=== PATIENT | female | born 1995 | race Caucasian/White ===

== ENCOUNTER 2020-10-05 19:49 | Inpatient (IN) | payer OTHER, SELFPAY ==
--- NOTE | ~2020-10-05 | CT_ITS ---
EXAMINATION: CT ABDOMEN AND PELVIS WITH CONTRAST CLINICAL INFORMATION: pp right upper quadrant pain. Elevated LFTs COMPARISON: None TECHNIQUE: Multidetector volumetric images were obtained from the superior aspect of the liver through the pubic symphysis following administration 85 mL of Omnipaque 350 intravenous contrast. Sagittal and coronal reformatted images were obtained on the technologist's workstation. Oral contrast: No This CT examination was performed using dose optimization techniques as appropriate, variously including the following: *Automated exposure control *Adjustment of mA and/or kV according to patient size (this includes techniques or standardized protocols for targeted exams where dose is matched to indication/reason for exam; i.e. extremities or head) *Use of iterative reconstruction technique DLP: 638 mGy-cm FINDINGS: LUNG BASES: Clear LIVER, GALLBLADDER, AND BILIARY TREE: Hepatomegaly. Severe diffuse hepatic steatosis. No focal liver lesions. No intra or extrahepatic biliary dilatation. Gallbladder unremarkable. PANCREAS: Unremarkable. SPLEEN: Unremarkable. ADRENAL GLANDS: Unremarkable. KIDNEYS AND URETERS: The kidneys are normal in size, shape, and attenuation. No hydronephrosis, hydroureter, or calculi seen. No perinephric stranding. BLADDER: Unremarkable. GASTROINTESTINAL TRACT: No intestinal obstruction or inflammation. Submucosal fat deposition present within the ascending colon and proximal transverse colon. Appendectomy. ABDOMINAL WALL: No significant hernia is appreciated. LYMPH NODES: Normal. VASCULAR: Unremarkable. PELVIC VISCERA: Uterus and adnexa unremarkable. OSSEOUS STRUCTURES: No acute or suspicious osseous abnormalities. CT/CT abdomen pelvis w con IMPRESSION: * Hepatomegaly and severe diffuse hepatic steatosis. * Nonspecific intramural fatty deposition within the ascending colon. This can be seen as a normal finding in the setting of obesity, but can also been seen in association with inflammatory bowel disease.
[2020-10-05 19:57] VITALS: BP 139/94; PULSE 100; RESP 18; TEMP 37.1; O2SAT 99; BMI 26.4
[2020-10-05 20:00] VITALS: PULSE 81; RESP 16; O2SAT 100
[2020-10-05 20:19] LABS: Glucose Urine UA NEG (NEG); Leukocyte Esterase Urine 1+ (NEG); Nitrite Urine POS (NEG); PH 6.5 (5.0-8.0); Specific Gravity - Urine 1.015 (1.005-1.025); UACC Culture Trigger YES; Urine Blood 3+ (NEG); Urine Ketones 15 MG/DL (NEG); Urine Protein 1+ MG/DL (NEG-TRACE)
[2020-10-05 20:21] LABS: Appearance Urine CLEAR; Color Urine AMBER
[2020-10-05 20:22] LABS: UPreg QC Valid YES; Urine Pregnancy NEGATIVE (NEGATIVE)
[2020-10-05 20:31] LABS: Bacteria Urine 1+ /LPF; Squamous Epithelial Cell Urine 2+ /LPF
--- NOTE | 2020-10-05 20:33 | PC.NURSE ---
pt to room with c/o nausea and vomiting. pt chg into gown and awaiting md's eval.
--- NOTE | 2020-10-05 21:15 | ED_ITS ---
HPI - Nausea/Vomiting/Diarrhea General Chief complaint: Nausea/Vomiting/Diarrhea Stated complaint: Vomiting Time Seen by Provider: 10/05/20 21:07 Source: patient Mode of arrival: ambulatory History of Present Illness HPI Narrative: 25-year-old female presents with 3-4 days nausea and vomiting but denies any fever, chills, diarrhea, urinary pain/burning/frequency, or vaginal discharge. In addition, patient denies any back pain and states that she recently completed a course of oral steroids for her eczema. Related Data Allergies Allergy/AdvReac Type Severity Reaction Status Date / Time No Known Allergies Allergy Verified 10/05/20 19:57 Review of Systems Review of Systems: Pertinent positives and negatives as stated in the HPI and 10 point review of systems is otherwise negative. [facility] Past Medical History Source: nursing notes reviewed Surgical History History of appendectomy Social History Social History Advance Directives: No Advance Directives Information Provided: Yes Physical Exam Vital Signs: Vital Signs: Last Vital Signs Temp 98.7 F 10/05/20 19:57 Pulse 84 10/05/20 22:00 Resp 16 10/05/20 22:00 BP 139/94 H 10/05/20 19:57 Pulse Ox 100 10/05/20 22:00 Body Mass Index 26.4 VITAL SIGNS: Reviewed. GENERAL: Well developed, well nourished, in no acute distress. HEAD: Normocephalic/atraumatic EYES: PERRLA, EOMI, scleral icterus NOSE: Nares patent bilateral OROPHARYNX: no oral lesions noted, posterior pharynx clear NECK: Supple, no adenopathy LUNGS: Normal breath sounds. No adventitious sounds or accessory muscle use. SpO2<99> CARDIOVASCULAR: Regular rate and rhythm without noted murmurs ABDOMEN: Soft, non-tender, non-distended with bowel sounds, no CVA tenderness SKIN: Inspection of the skin reveals significant eczema on back and bilateral upper extremities without noted weeping NEUROLOGIC: Alert and oriented x 4. Course Course Course Narrative: 25-year-old female with history and clinical presentation suggestive of gastroenteritis, , but less likely appendicitis. On review of all investigations urinalysis is significant for UTI and given nausea and vomiting most consistent with pyelonephritis no clinical exam and history do not support this. Given the scleral icterus will proceed with basic labs and patient will receive 1 L IV fluid/Zofran/1g of Rocephin. Review of remaining investigations significant for significantly elevated LFTs, CT scan findings of severe/diffuse hepatic steatosis and fatty deposition within the ascending colon that given patient's history may be more associated with an IBD sort of etiology. I consulted with GI please refer below for that discussion. Patient will be admitted. 0130: On further discussion with the patient she does endorse that she has 2-3 cocktails with some shots 2 to 3 times a week. 0205: I discussed case with inpatient hospitalist team who is agreeable for admission. Reevaluation(s) Reevaluation #1: I discussed this case with Dr. Ann, gastroenterology, who recommends: Admission, GGT/mono/LDH/coags, IV fluids, NPO and she will evaluate the patient in the morning. Time: 01:05 MDM - Nausea/Vomiting/Diarrhea Lab Data Result diagrams: 10/05/20 21:28 10/05/20 21:28 Labs: Lab Results 10/05/20 10/05/20 10/05/20 Range/Units 20:07 20:07 20:07 WBC (4.8-10.8) X10*3/uL RBC (4.20-5.50) X10*6/uL Hgb (12.0-16.0) g/dl Hct (37-47) % MCV (80-98) fL MCH (27.0-33.0) pg MCHC (31.0-35.0) g/dl RDW (11.0-16.0) % Plt Count (160-400) X10*3/uL MPV (9.4-12.3) fL Immature Gran % (Auto) (0.0-0.4) % Neut % (Auto) (45-73) % Lymph % (Auto) (20-40) % [place] % (Auto) (2-11) % Eos % (Auto) (0-4) % Baso % (Auto) (0-2) % Lymph # (Auto) (1.2-4.9) X10*3/uL [place] # (Auto) (0.1-1.2) X10*3/uL Eos # (Auto) (0.0-0.4) X10*3/uL Baso # (Auto) (0.0-0.2) X10*3/uL Abs Immat Gran (auto) (0.00-0.03) X10*3/uL Absolute Neuts (auto) (2.0-8.3) X10*3/uL Absolute Nucleated RBC (0.0-0.012) X10*3/uL Nucleated RBC % (auto) (0.0-0.2) /100WBC PT (10.8-13.0) SEC INR (0.9-1.1) APTT (24.1-38.0) SEC Sodium (135-145) mmol/L Potassium (3.3-5.1) mmol/L Chloride (96-108) mmol/L Carbon Dioxide (22-29) mmol/L Anion Gap (12-20) BUN (9-16) mg/dL Creatinine (0.5-1.4) mg/dL Estim Creat Clear Calc Estimated GFR Random Glucose (60-115) mg/dL Calcium (8.4-10.2) mg/dL Total Bilirubin (0.0-1.0) mg/dL GGT (7-33) U/L AST (5-31) U/L ALT (0-31) U/L Alkaline Phosphatase (39-117) U/L Lactate Dehydrogenase (122-220) U/L Total Protein (6.5-8.0) g/dL Albumin (3.5-5.0) g/dL Urine Color RASHEED Urine Appearance CLEAR Urine pH 6.5 (5.0-8.0) Ur Specific [place] 1.015 (1.005-1.025) Urine Protein 1+ H (NEG-TRACE) MG/DL Urine Glucose (UA) NEG (NEG) MG/DL Urine Ketones 15 (NEG) MG/DL Urine Blood 3+ H (NEG) Urine Nitrite POS H (NEG) Ur Leukocyte Esterase 1+ H (NEG) Urine RBC 10-14 H (0) /HPF Urine WBC 5-9 H (0-4) /HPF Ur Squamous Epith Cells 2+ /LPF Urine Bacteria 1+ /LPF Urine Test NEGATIVE (NEGATIVE) Urine Opiates Screen Not Detected (Not Detect) Acetaminophen (<30) mcg/mL Ur Barbiturates Screen Not Detected (Not Detect) Ur Phencyclidine Scrn Not Detected (Not Detect) Ur Amphetamines Screen Not Detected (Not Detect) U Benzodiazepines Scrn Not Detected (Not Detect) Urine Cocaine Screen Not Detected (Not Detect) U Marijuana (THC) Screen Not Detected (Not Detect) COVID-19 (BLANCA) (Negative) COVID-19 Clin Com Monoscreen (Negative) 10/05/20 10/05/20 10/05/20 Range/Units 21:28 21:28 21:28 WBC 6.3 (4.8-10.8) X10*3/uL RBC 3.58 L (4.20-5.50) X10*6/uL Hgb 13.2 (12.0-16.0) g/dl Hct 37.9 (37-47) % MCV 105.9 H (80-98) fL MCH 36.9 H (27.0-33.0) pg MCHC 34.8 (31.0-35.0) g/dl RDW 14.4 (11.0-16.0) % Plt Count 165 (160-400) X10*3/uL MPV 12.1 (9.4-12.3) fL Immature Gran % (Auto) 0.2 (0.0-0.4) % Neut % (Auto) 69.4 (45-73) % Lymph % (Auto) 20.8 (20-40) % [place] % (Auto) 7.6 (2-11) % Eos % (Auto) 1.4 (0-4) % Baso % (Auto) 0.6 (0-2) % Lymph # (Auto) 1.3 (1.2-4.9) X10*3/uL [place] # (Auto) 0.5 (0.1-1.2) X10*3/uL Eos # (Auto) 0.1 (0.0-0.4) X10*3/uL Baso # (Auto) 0.0 (0.0-0.2) X10*3/uL Abs Immat Gran (auto) 0.01 (0.00-0.03) X10*3/uL Absolute Neuts (auto) 4.4 (2.0-8.3) X10*3/uL Absolute Nucleated RBC 0.000 (0.0-0.012) X10*3/uL Nucleated RBC % (auto) 0.0 (0.0-0.2) /100WBC PT (10.8-13.0) SEC INR (0.9-1.1) APTT (24.1-38.0) SEC Sodium 138 (135-145) mmol/L Potassium 3.5 (3.3-5.1) mmol/L Chloride 96 (96-108) mmol/L Carbon Dioxide 26 (22-29) mmol/L Anion Gap 20 (12-20) BUN 10 (9-16) mg/dL Creatinine 0.63 (0.5-1.4) mg/dL Estim Creat Clear Calc 142.0 Estimated GFR > 60 Random Glucose 89 (60-115) mg/dL Calcium 9.2 (8.4-10.2) mg/dL Total Bilirubin 5.1 H (0.0-1.0) mg/dL GGT 836 H (7-33) U/L AST 322 H (5-31) U/L ALT 124 H (0-31) U/L Alkaline Phosphatase 173 H (39-117) U/L Lactate Dehydrogenase 385 H (122-220) U/L Total Protein 7.1 (6.5-8.0) g/dL Albumin 4.0 (3.5-5.0) g/dL Urine Color Urine Appearance Urine pH (5.0-8.0) Ur Specific [place] (1.005-1.025) Urine Protein (NEG-TRACE) MG/DL Urine Glucose (UA) (NEG) MG/DL Urine Ketones (NEG) MG/DL Urine Blood (NEG) Urine Nitrite (NEG) Ur Leukocyte Esterase (NEG) Urine RBC (0) /HPF Urine WBC (0-4) /HPF Ur Squamous Epith Cells /LPF Urine Bacteria /LPF Urine Test (NEGATIVE) Urine Opiates Screen (Not Detect) Acetaminophen 1 (<30) mcg/mL Ur Barbiturates Screen (Not Detect) Ur Phencyclidine Scrn (Not Detect) Ur Amphetamines Screen (Not Detect) U Benzodiazepines Scrn (Not Detect) Urine Cocaine Screen (Not Detect) U Marijuana (THC) Screen (Not Detect) COVID-19 (BLANCA) (Negative) COVID-19 Clin Com Monoscreen Negative (Negative) 10/06/20 10/06/20 Range/Units 01:32 01:32 WBC (4.8-10.8) X10*3/uL RBC (4.20-5.50) X10*6/uL Hgb (12.0-16.0) g/dl Hct (37-47) % MCV (80-98) fL MCH (27.0-33.0) pg MCHC (31.0-35.0) g/dl RDW (11.0-16.0) % Plt Count (160-400) X10*3/uL MPV (9.4-12.3) fL Immature Gran % (Auto) (0.0-0.4) % Neut % (Auto) (45-73) % Lymph % (Auto) (20-40) % [place] % (Auto) (2-11) % Eos % (Auto) (0-4) % Baso % (Auto) (0-2) % Lymph # (Auto) (1.2-4.9) X10*3/uL [place] # (Auto) (0.1-1.2) X10*3/uL Eos # (Auto) (0.0-0.4) X10*3/uL Baso # (Auto) (0.0-0.2) X10*3/uL Abs Immat Gran (auto) (0.00-0.03) X10*3/uL Absolute Neuts (auto) (2.0-8.3) X10*3/uL Absolute Nucleated RBC (0.0-0.012) X10*3/uL Nucleated RBC % (auto) (0.0-0.2) /100WBC PT 13.7 H (10.8-13.0) SEC INR 1.2 H (0.9-1.1) APTT 33.2 (24.1-38.0) SEC Sodium (135-145) mmol/L Potassium (3.3-5.1) mmol/L Chloride (96-108) mmol/L Carbon Dioxide (22-29) mmol/L Anion Gap (12-20) BUN (9-16) mg/dL Creatinine (0.5-1.4) mg/dL Estim Creat Clear Calc Estimated GFR Random Glucose (60-115) mg/dL Calcium (8.4-10.2) mg/dL Total Bilirubin (0.0-1.0) mg/dL GGT (7-33) U/L AST (5-31) U/L ALT (0-31) U/L Alkaline Phosphatase (39-117) U/L Lactate Dehydrogenase (122-220) U/L Total Protein (6.5-8.0) g/dL Albumin (3.5-5.0) g/dL Urine Color Urine Appearance Urine pH (5.0-8.0) Ur Specific [place] (1.005-1.025) Urine Protein (NEG-TRACE) MG/DL Urine Glucose (UA) (NEG) MG/DL Urine Ketones (NEG) MG/DL Urine Blood (NEG) Urine Nitrite (NEG) Ur Leukocyte Esterase (NEG) Urine RBC (0) /HPF Urine WBC (0-4) /HPF Ur Squamous Epith Cells /LPF Urine Bacteria /LPF Urine Test (NEGATIVE) Urine Opiates Screen (Not Detect) Acetaminophen (<30) mcg/mL Ur Barbiturates Screen (Not Detect) Ur Phencyclidine Scrn (Not Detect) Ur Amphetamines Screen (Not Detect) U Benzodiazepines Scrn (Not Detect) Urine Cocaine Screen (Not Detect) U Marijuana (THC) Screen (Not Detect) COVID-19 (BLANCA) Negative (Negative) COVID-19 Clin Com See Note Monoscreen (Negative) Discharge Plan Discharge Clinical Impression: Hepatitis UTI (urinary tract infection) Qualifiers: Urinary tract infection type: acute cystitis Patient Disposition: Admitted As Inpatient
[2020-10-05] MEDS: 0.9 % Sodium Chloride 1,000 ML 999 ML IV (21:29)
[2020-10-05] MEDS: cefTRIAXone sodium 1 GM in 0.9 % Sodium Chloride 50 ML IV (21:35)
[2020-10-05 21:39] LABS: MANUAL DIFF FLAG NO
--- NOTE | 2020-10-05 21:40 | PC.NURSE ---
IV PLACED TO RAC, LABS DRAWN, NS UP AND RUNNING ALONG WITH ROCEPHIN, SITE INTACT. PT REFUSE MD TONYA AWARE.
[2020-10-05 21:43] LABS: Basophils Percent Auto 0.6 % (0-2); Eosinophils Absolute Auto 0.1 X10*3/uL (0.0-0.4); Eosinophils Percent Auto 1.4 % (0-4); Hematocrit 37.9 % (37-47); Hemoglobin 13.2 g/dl (12.0-16.0); Imm Gran Abs Auto 0.01 X10*3/uL (0.00-0.03); Imm Gran Pct Auto 0.2 % (0.0-0.4); Lymphocytes Absolute Auto 1.3 X10*3/uL (1.2-4.9); Lymphocytes Percent Auto 20.8 % (20-40); Mean Corpuscular HGB Conc 34.8 g/dl (31.0-35.0); Mean Corpuscular Hemoglobin 36.9 pg (27.0-33.0); Mean Corpuscular Volume 105.9 fL (80-98); Mean Platelet Volume 12.1 fL (9.4-12.3); Monocytes Absolute Auto 0.5 X10*3/uL (0.1-1.2); Monocytes Percent Auto 7.6 % (2-11); Neutrophils Absolute Auto 4.4 X10*3/uL (2.0-8.3); Neutrophils Percent Auto 69.4 % (45-73); Platelet Count 165 X10*3/uL (160-400); Red Blood Count 3.58 X10*6/uL (4.20-5.50); Red Cell Distribution Width 14.4 % (11.0-16.0); White Blood Count 6.3 X10*3/uL (4.8-10.8)
[2020-10-05 22:00] VITALS: PULSE 84; RESP 16; O2SAT 100
[2020-10-05 22:12] LABS: Alanine Aminotransferase 124 U/L (0-31); Alkaline Phosphatase 173 U/L (39-117); Anion Gap 20 (12-20); Aspartate Amino Transferase 322 U/L (5-31); Bilirubin Total 5.1 mg/dL (0.0-1.0); Blood Urea Nitrogen 10 mg/dL (9-16); Calcium 9.2 mg/dL (8.4-10.2); Carbon Dioxide 26 mmol/L (22-29); Chloride 96 mmol/L (96-108); Estimated Glomerular Filt Rate > 60; Glucose Random 89 mg/dL (60-115); Potassium 3.5 mmol/L (3.3-5.1); Sodium 138 mmol/L (135-145); Total Protein 7.1 g/dL (6.5-8.0)
--- NOTE | 2020-10-05 23:00 | PC.NURSE ---
pt awaiting for CT. pt is requesting MD to room. MD aware.
[2020-10-05] MEDS: iohexoL 350 MG/ML 100 ML INFUS..BTL IV (23:37)
--- NOTE | 2020-10-05 23:39 | PC.NURSE ---
PT RETURNS TO ROOM FROM CT.
--- NOTE | 2020-10-06 00:44 | PC.NURSE ---
PT RESTING IN STRETCHER, PT STATES IM FEELING MUCH BETTER . PT ALERT, RESPIRATIONS EASY, N/L. SKIN W/D. PT AWAITING FOR FURTHER ORDERS. PT DENIES ANY COMPLAINTS.
[2020-10-06 01:17] LABS: Acetaminophen LAB 1 mcg/mL (<30)
[2020-10-06] MEDS: 0.9 % Sodium Chloride 1,000 ML 999 ML IV ×2 (01:33→01:43)
[2020-10-06 01:38] LABS: Amphetamine Screen Urine Not Detected (Not Detect); Barbiturates, Urine Not Detected (Not Detect); Benzodiazepines Screen Urine Not Detected (Not Detect); Cannabinoid Screen Urine Not Detected (Not Detect); Cocaine Screen Urine Not Detected (Not Detect); Opiate Screen Urine Not Detected (Not Detect); Phencyclidine Screen Urine Not Detected (Not Detect)
--- NOTE | 2020-10-06 01:45 | PC.NURSE ---
PT BEING ADMITTED. PT AWARE AND CONCERNED IF BOYFRIEND CAN STAY WITH PT OVERNIGHT.
[2020-10-06 01:49] LABS: Gamma Glutamyl Transpeptidase 836 U/L (7-33); Lactate Dehydrogenase 385 U/L (122-220)
[2020-10-06 01:52] LABS: INTERNATIONAL NORM RATIO 1.2 (0.9-1.1); Prothrombin Time 13.7 SEC (10.8-13.0)
[2020-10-06 01:54] LABS: Partial Thromboplastin Time 33.2 SEC (24.1-38.0)
[2020-10-06 02:00] VITALS: BP 132/84; PULSE 78; RESP 16; O2SAT 98
[2020-10-06 02:01] LABS: COVID-19 Test Negative (Negative)
[2020-10-06 02:02] LABS: Monotest Negative (Negative)
--- NOTE | 2020-10-06 02:37 | PC.NURSE ---
2ND L OF NS UP AND RUNNING W/O DIFFICULTY. BOYFRIEND AT BEDSIDE WITH PT UNTIL PT GETS ADMITTED TO FLOOR. PT DENIES ANY COMPLAINTS AT THIS TIME.
[2020-10-06 04:00] VITALS: PULSE 86; RESP 16; O2SAT 99
--- NOTE | 2020-10-06 04:59 | P.HPHOSP_ITS ---
History of Present Illness Date of Service: 10/06/20 Chief Complaint: Nausea and vomiting This is a young 25-year-old female with no significant past medical history presents to the hospital with complaints of nausea vomiting for the past 4-5 days. She denies any diarrhea, no abdominal pain, denies any fever or chills, denies any urinary symptoms including no dysuria, urgency or frequency although reports that her urine has been darker, she denies any suprapubic pain, no flank pain, she noticed that her eyes are slightly more yellow than usual, no changes to go to alert her skin. Denies any history of liver disease in the family or herself, denies any history of diarrhea. Currently denies any headache, change in vision, chest pain, shortness of breath, and low no lower extremity edema. On arrival to the ED hemodynamically stable labs are significant for WBC count 6.3, hemoglobin of 13.2, hematocrit 37.9, PT of 13.7, INR of 1.2, CMP significant for total bili of 5.1, GGT of a 36, AST of 3 during 2, ALT of 124, alk-phos of 173, LDH of 385, albumin of 4.0, UA that is positive for nitrites, leukocyte Estrace, and WBC. UDS negative, COVID-[address] shows hepatomegaly and severe diffuse hepatic steatosis, nonspecific intramural fatty deposition within the ascending colon, can be seen as a normal finding in the setting of a BC but can also be seen in association inflammatory bowel disease. Patient denies any history of inflammatory bowel disease in herself or family. Past medical history as below Of note patient does report drinking 5-10 alcoholic drinks 2 to 3 times a week for past 4 years Review of Systems Review of Systems: Yes all other systems are reviewed and are negative PMFSH Functional capacity: independent ambulation Pertinent family history: Denies any family history for liver disease, no cancer Surgical History History of appendectomy Social History (Updated 10/06/20 @ 05:03 by Shannon Severino MD) Alcohol intake: current Advance Directives: No Advance Directives Information Provided: Yes Meds Allergies Allergy/AdvReac Type Severity Reaction Status Date / Time No Known Allergies Allergy Verified 10/05/20 19:57 Physical Exam Vital Signs and Narrative: Vital Signs: Last Vital Signs Temp 98.7 F 10/05/20 19:57 Pulse 78 10/06/20 02:00 Resp 16 10/06/20 02:00 BP 132/84 10/06/20 02:00 Pulse Ox 98 10/06/20 02:00 Body Mass Index 26.4 Const: General: cooperative and no acute distress Orientation/consciousness: patient oriented x3 Eyes: General: appearance normal, both eyes and all related structures Resp: Effort & Inspection: normal respiratory effort and able to speak in complete sentences Cardio: Rate: regular rate Rhythm: regular rhythm GI: Palpation (GI): Soft to palpation Auscultation: normal bowel sounds Skin: General skin exam: no rashes or lesions noted Neuro: General: patient oriented x3 Cognition (Neuro): normal cognition Extrem: General: Yes normal to inspection and Yes no pedal edema Results Labs CBC and Chem 7: 10/05/20 21:28 10/05/20 21:28 Labs: Laboratory Results - last 24 hr 10/05/20 10/05/20 10/05/20 20:07 20:07 20:07 MCV MCH MCHC RDW Plt Count MPV Immature Gran % (Auto) Neut % (Auto) Lymph % (Auto) [place] % (Auto) Eos % (Auto) Baso % (Auto) Lymph # (Auto) [place] # (Auto) Eos # (Auto) Baso # (Auto) Abs Immat Gran (auto) Absolute Neuts (auto) Absolute Nucleated RBC Nucleated RBC % (auto) PT INR APTT Anion Gap Estim Creat Clear Calc Estimated GFR Random Glucose Calcium Total Bilirubin GGT AST ALT Alkaline Phosphatase Lactate Dehydrogenase Total Protein Albumin Urine Color RASHEED Urine Appearance CLEAR Urine pH 6.5 Ur Specific [place] 1.015 Urine Protein 1+ H Urine Glucose (UA) NEG Urine Ketones 15 Urine Blood 3+ H Urine Nitrite POS H Ur Leukocyte Esterase 1+ H Urine RBC 10-14 H Urine WBC 5-9 H Ur Squamous Epith Cells 2+ Urine Bacteria 1+ Urine Test NEGATIVE Urine Opiates Screen Not Detected Acetaminophen Ur Barbiturates Screen Not Detected Ur Phencyclidine Scrn Not Detected Ur Amphetamines Screen Not Detected U Benzodiazepines Scrn Not Detected Urine Cocaine Screen Not Detected U Marijuana (THC) Screen Not Detected COVID-19 (BLANCA) COVID-19 Clin Com Monoscreen 10/05/20 10/05/20 10/05/20 21:28 21:28 21:28 MCV 105.9 H MCH 36.9 H MCHC 34.8 RDW 14.4 Plt Count 165 MPV 12.1 Immature Gran % (Auto) 0.2 Neut % (Auto) 69.4 Lymph % (Auto) 20.8 [place] % (Auto) 7.6 Eos % (Auto) 1.4 Baso % (Auto) 0.6 Lymph # (Auto) 1.3 [place] # (Auto) 0.5 Eos # (Auto) 0.1 Baso # (Auto) 0.0 Abs Immat Gran (auto) 0.01 Absolute Neuts (auto) 4.4 Absolute Nucleated RBC 0.000 Nucleated RBC % (auto) 0.0 PT INR APTT Anion Gap 20 Estim Creat Clear Calc 142.0 Estimated GFR > 60 Random Glucose 89 Calcium 9.2 Total Bilirubin 5.1 H GGT 836 H AST 322 H ALT 124 H Alkaline Phosphatase 173 H Lactate Dehydrogenase 385 H Total Protein 7.1 Albumin 4.0 Urine Color Urine Appearance Urine pH Ur Specific [place] Urine Protein Urine Glucose (UA) Urine Ketones Urine Blood Urine Nitrite Ur Leukocyte Esterase Urine RBC Urine WBC Ur Squamous Epith Cells Urine Bacteria Urine Test Urine Opiates Screen Acetaminophen 1 Ur Barbiturates Screen Ur Phencyclidine Scrn Ur Amphetamines Screen U Benzodiazepines Scrn Urine Cocaine Screen U Marijuana (THC) Screen COVID-19 (BLANCA) COVID-19 Clin Com Monoscreen Negative 10/06/20 10/06/20 01:32 01:32 MCV MCH MCHC RDW Plt Count MPV Immature Gran % (Auto) Neut % (Auto) Lymph % (Auto) [place] % (Auto) Eos % (Auto) Baso % (Auto) Lymph # (Auto) [place] # (Auto) Eos # (Auto) Baso # (Auto) Abs Immat Gran (auto) Absolute Neuts (auto) Absolute Nucleated RBC Nucleated RBC % (auto) PT 13.7 H INR 1.2 H APTT 33.2 Anion Gap Estim Creat Clear Calc Estimated GFR Random Glucose Calcium Total Bilirubin GGT AST ALT Alkaline Phosphatase Lactate Dehydrogenase Total Protein Albumin Urine Color Urine Appearance Urine pH Ur Specific [place] Urine Protein Urine Glucose (UA) Urine Ketones Urine Blood Urine Nitrite Ur Leukocyte Esterase Urine RBC Urine WBC Ur Squamous Epith Cells Urine Bacteria Urine Test Urine Opiates Screen Acetaminophen Ur Barbiturates Screen Ur Phencyclidine Scrn Ur Amphetamines Screen U Benzodiazepines Scrn Urine Cocaine Screen U Marijuana (THC) Screen COVID-19 (BLANCA) Negative COVID-19 Clin Com See Note Monoscreen Imaging Radiologist's Impressions: Impressions Abdomen/Pelvis CT 10/05/20 22:15 IMPRESSION: * Hepatomegaly and severe diffuse hepatic steatosis. * Nonspecific intramural fatty deposition within the ascending colon. This can be seen as a normal finding in the setting of obesity, but can also been seen in association with inflammatory bowel disease. Assessment and Plan (1) Hepatitis: Status: Acute (2) UTI (urinary tract infection): Qualifiers: Urinary tract infection type: acute cystitis Status: Acute (3) Nausea & vomiting: Status: Acute This is a 25-year-old female with no PMH who presents to the hospital with complaints of nausea vomiting found to have acute hepatitis # transaminitis/acute hepatitis - has hepatomegaly and severe diffuse hepatic steatosis on CT scan - hepatobiliary pattern of elevation of her LFTs including elevation of GGT, alk-phos, AST and ALT - CT scans also concerning for inflammatory bowel disease although has no symptoms including no diarrhea just the nausea and vomiting - does drink alcohol 2 to 3 times a week Plan: - will obtain hepatitis A,B,C panel - GI was consulted by ED, recommended NPO, no Tylenol, and possible scope - will follow LFTs # nausea vomiting - possibly secondary to hyperbilirubinemia - supportive measures with Zofran - IV fluids # UTI - asymptomatic - will start on ceftriaxone day - follow cultures DVT prophylaxis Lovenox
[2020-10-06 06:00] VITALS: PULSE 86; RESP 16; O2SAT 99
[2020-10-06 07:44] VITALS: BP 144/91; PULSE 86; RESP 18; TEMP 36.4; O2SAT 99
[2020-10-06] MEDS: Lactated Ringers 1,000 ML 80 ML IVCONT (07:54)
[2020-10-06] MEDS: 0.9 % Sodium Chloride Flush 3 ML SYRINGE IVFLUSH (08:01)
[2020-10-06 08:36] LABS: Alanine Aminotransferase 101 U/L (0-31); Albumin Level 3.5 g/dL (3.5-5.0); Alkaline Phosphatase 150 U/L (39-117); Aspartate Amino Transferase 257 U/L (5-31); Bilirubin Direct 3.1 mg/dL (0.0-0.5); Bilirubin Total 4.2 mg/dL (0.0-1.0); C Reactive Protein 0.81 mg/dL (< or = 0.50); Iron 93 mcg/dL (30-160); Magnesium 1.7 mg/dL (1.6-2.6); Percent Iron Saturation 51 % (15-50); Total Iron Binding Capacity 181 mcg/dL (228-428); Total Protein 6.1 g/dL (6.5-8.0); Unsaturated Iron Binding 88 ug/dL
[2020-10-06] MEDS: Enoxaparin Sodium 40 MG/0.4 ML SYRINGE SUBCUT (10:22)
--- NOTE | 2020-10-06 11:18 | PM.GICN ---
History of Present Illness Data of Consult Service Date: 10/06/20 Requesting physician: Yandy Rehman Primary Care Provider: None Physician HPI Reason for consult: 25 yo female who presented with N/V and abnormal liver profile. Patient denies ever having had a problems like this. No hx ulcer disease. No family hx of any related diseases. She can drink 2-10 cocktails in a day. When she drinks she drinks vodka. She does not drink every day. 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 She has not been eating much protein in her diet--more crackers, fruits, etc. She has never had any withdrawal symptoms or seizures. Review of Systems Constitutional: Constitutional: Reports no additional constitutional complaints, Denies lethargy, Denies poor appetite and Denies weight gain Cardiovascular: Cardiovascular: Denies chest pain, Denies irregular heart rhythm, Denies palpitations and Denies dyspnea Respiratory: Respiratory: Denies cough and Denies dyspnea Gastrointestinal: Gastrointestinal: Reports abdominal pain (much tracey @ this time), Denies bloating, Denies change in stool character, Denies constipation and Reports nausea (gone) Genitourinary: Comments: Regular menstrual cycle Endocrine: Endocrine: Denies palpitations PMFSH Past Medical History Medical History (Updated 10/06/20 @ 11:22 by Taniya Ann MD) Alcohol induced fatty liver Functional capacity: independent ambulation Family History Family History (Updated 10/06/20 @ 11:25 by Taniya Ann MD) Father No known problems Mother No known problems Surgical History Surgical History (Updated 10/06/20 @ 11:26 by Taniya Ann MD) History of appendectomy Social History Social History (Updated 10/06/20 @ 05:03 by Shannon Severino MD) Household Members: Spouse Household Members Other:: 2 Housing: Apartment Alcohol intake: current Smoking Status: Never smoker Use of substances other than those prescribed or required for medical reasons: No Have you been hit, kicked, punched, or otherwise hurt by someone within the past year? If so, by whom?: No Do you feel safe in your current relationship?: Yes Is there a partner from a previous relationship who is making you feel unsafe now?: No Are you made to feel afraid or neglected: No Advance Directives: No Advance Directives Information Provided: Yes Do you have thoughts of harming others: None Do you have a plan to hurt others: No Plan Recently lost weight without trying: No Meds Allergies Allergy/AdvReac Type Severity Reaction Status Date / Time No Known Allergies Allergy Verified 10/05/20 19:57 Active Medications: Current Medications Generic Name Dose Route Start Last Admin Trade Name Freq PRN Reason Stop Dose Admin Enoxaparin Sodium 40 mg 10/06/20 09:00 10/06/20 10:22 Enoxaparin Sodium 40 Mg/0.4 Ml Syringe SUBCUT 40 mg Q24H BERNARDO Administration Ceftriaxone Sodium 1 gm/ 50 mls @ 100 mls/hr 10/06/20 20:00 Sodium Chloride IV Q24H BERNARDO Lactated Ringer's 1,000 mls @ 80 mls/hr 10/06/20 07:14 10/06/20 07:54 Lr IVCONT 80 mls/hr .[id number] BERNARDO Administration Ondansetron HCl 4 mg 10/06/20 07:14 Ondansetron Hcl 4 Mg/2 Ml Vial IVPUSH Q8H PRN Nausea and Vomiting Sodium Chloride 3 ml 10/06/20 08:00 10/06/20 08:01 0.9 % Sodium Chloride Flush 3 Ml Syringe IVFLUSH 3 ml QSHIFT BERNARDO Administration Home Medications Medication Instructions Recorded Confirmed Last Taken Type No Known Home Meds 10/06/20 10/06/20 Unknown History Physical Exam Vital Signs: Vital Signs: Last Vital Signs Temp 97.5 F 10/06/20 07:44 Pulse 86 10/06/20 07:44 Resp 18 10/06/20 07:44 BP 144/91 H 10/06/20 07:44 Pulse Ox 99 10/06/20 07:44 Body Mass Index 26.4 Const: General: cooperative, healthy appearing and no acute distress Resp: Effort & Inspection: normal respiratory effort and able to speak in complete sentences Auscultation: clear to auscultation bilaterally Cardio: Rate: regular rate Rhythm: regular rhythm GI: Palpation (GI): Soft to palpation, nontender, no guarding and no masses Extrem: General: Yes no clubbing, cyanosis or edema Results Labs CBC & Chem 7: 10/05/20 21:28 10/05/20 21:28 Labs: Short CBC 10/05/20 Range/Units 21:28 WBC 6.3 (4.8-10.8) X10*3/uL Hgb 13.2 (12.0-16.0) g/dl Hct 37.9 (37-47) % Plt Count 165 (160-400) X10*3/uL BMP 10/05/20 21:28 Sodium 138 Potassium 3.5 Chloride 96 Carbon Dioxide 26 BUN 10 Creatinine 0.63 Calcium 9.2 Liver Function 10/05/20 10/06/20 Range/Units 21:28 07:44 Total Bilirubin 5.1 H 4.2 H (0.0-1.0) mg/dL Direct Bilirubin 3.1 H (0.0-0.5) mg/dL GGT 836 H (7-33) U/L AST 322 H 257 H (5-31) U/L ALT 124 H 101 H (0-31) U/L Alkaline Phosphatase 173 H 150 H (39-117) U/L Albumin 4.0 3.5 (3.5-5.0) g/dL Urine 10/05/20 Range/Units 20:07 Urine Color RASHEED Urine Appearance CLEAR Urine pH 6.5 (5.0-8.0) Ur Specific Otis 1.015 (1.005-1.025) Urine Protein 1+ H (NEG-TRACE) MG/DL Urine Glucose (UA) NEG (NEG) MG/DL Assessment and Plan (1) Alcohol induced fatty liver: Status: Acute Counselled patient @ length on what appears to be Acute Alcohol induced Steatohepatitis. This can be a serious problem. Currently, her labs are trending down. 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 (2) Nausea & vomiting: Status: Acute Nausea and vomiting have stopped. Patient says she feels back to baseline. She had changed her diet to lower protein content, more fruits was drinking moderate to heavy on some days. Presumptive alcohol induced gastritis--Might benefit from 14 days of Omeprazole @ hs. Stop Alcohol. (Patient says she does not think that will be a problem for her.) Diet full liquids to low fat as tolerated.
[2020-10-06 11:22] VITALS: BP 139/93; PULSE 65; RESP 15; TEMP 36.3; O2SAT 99
--- NOTE | 2020-10-06 11:59 | P.EN_ITS ---
Event Note Date of Service: 10/06/20 Event Note: This is a 25-year-old female with no significant past medical hist ory presented to the emergency department of 4-5 day history of vomiting. Workup in the emergency department revealed elevated liver transaminases. CT scan showed hepatic steatosis and nonspecific fatty deposition within the ascending colon. UA was also concerning for possible UTI. Patient denies any associated fever, chills, abdominal pain. She has had decreased p.o. intake due to her nausea and vomiting. She denies any dysuria, hematuria, polyuria. She denies any recent sick contacts, takeout food, travel. She has no history of IV drug abuse. She reports drinking 2-10 alcoholic drinks approximately 3 times per day. She denies any history of alcohol withdrawal. She was admitted to the medical service this morning. Resting in bed comfortable and in NAD CV: RRR, normal S1, S2 PULM; lungs clear to auscultation bilaterally no wheezes rhonchi or rales GI: Abdomen is soft, nontender nondistended. Positive bowel sounds : no CVAT Neuro: nonfocal EXTREMITITES; no edema A/P Acute hepatitis Imaging showing diffuse hepatic steatosis Possibly related to alcohol use -hepatitis panel pending -GI consult pending -follow LFTs asymptomatic bacteruria UA suggestive of UTI, but pt asymptomatic No leukocytosis, fever; no perinephric stranding on imaging. no CVAT on exam to suggest pyelo -started on ceftriaxone empirically, can continue until UCx return Alcohol use Denies daily use. No history of alcohol withdrawal. Does not appear to be in alcohol withdrawal at this time Continue to monitor dvt ppx - early ambulation attending: dr. villarreal
--- NOTE | 2020-10-06 12:22 | MHC.CM.PN ---
PATIENT IS INDEPENDENT WITH HER ADLS. NO DME OR VNA SERVICES. SELF TRANSPORT. NO PCP. SHE IS HOPING TO RETURN HOME TODAY WITH NO NEED FOR SERVICES. BOYFRIEND (IN ROOM) TO TRANSPORT.
[2020-10-06 15:15] VITALS: BP 134/84; PULSE 75; RESP 16; TEMP 36.6; O2SAT 98
--- NOTE | 2020-10-06 17:21 | PC.NURSE ---
P-=patient would like to go home,plan of care explained to patient I Dr. Rehman notified ,spoke with patient E-patient decided to leave AMA ,Dr. Rehman is aware
--- NOTE | 2020-10-06 18:40 | PM.DS ---
DS: Providers Provider Date of Service: 10/06/20 Date of admission: 10/06/20 04:55 Primary care physician: None Physician Consults: 10/06/20 07:14 Consult to Gastroenterology Routine Consulting Provider: Taniya Ann Reason for consultation: Acute hepatitis Has provider been notified: No DS: Diagnosis Discharge Diagnosis (1) Alcohol induced fatty liver: Status: Acute (2) Nausea & vomiting: Status: Acute DS: Medications Discharge Medications Home Medications: Home Medications Medication Instructions Recorded Confirmed No Known Home Meds 10/06/20 10/06/20 DS: Summary Hospital Course Hospital Course: HISTORY OF PRESENTING ILLNESS Chief Complaint: Nausea and vomiting This is a young 25-year-old female with no significant past medical history presents to the hospital with complaints of nausea vomiting for the past 4-5 days. She denies any diarrhea, no abdominal pain, denies any fever or chills, denies any urinary symptoms including no dysuria, urgency or frequency although reports that her urine has been darker, she denies any suprapubic pain, no flank pain, she noticed that her eyes are slightly more yellow than usual, no changes to go to alert her skin. Denies any history of liver disease in the family or herself, denies any history of diarrhea. Currently denies any headache, change in vision, chest pain, shortness of breath, and low no lower extremity edema. Of note patient does report drinking 5-10 alcoholic drinks 2 to 3 times a week for past 4 years On arrival to the ED hemodynamically stable labs are significant for WBC count 6.3, hemoglobin of 13.2, hematocrit 37.9, PT of 13.7, INR of 1.2, CMP significant for total bili of 5.1, GGT of a 36, AST of 3 during 2, ALT of 124, alk-phos of 173, LDH of 385, albumin of 4.0, UA that is positive for nitrites, leukocyte Estrace, and WBC. UDS negative, COVID-[address] shows hepatomegaly and severe diffuse hepatic steatosis, nonspecific intramural fatty deposition within the ascending colon, can be seen as a normal finding in the setting of a BC but can also be seen in association inflammatory bowel disease. Patient denies any history of inflammatory bowel disease in herself or family. Past medical history Status post appendectomy Hospital course 25-year-old female patient admitted with complaints of nausea vomiting of 4-5 days duration found to have significantly elevated liver enzymes, patient was evaluated by Dr. Ann from Gastroenterology, she felt her symptoms are due to acute alcohol induced steatohepatitis she felt that inflammation can resolved in days to weeks depending on herability to stay away from alcohol she recommended to place patient on full liquid diet and to follow LFTs, and have outpatient follow-up with her in 2-4 weeks, patient was placed on full liquid diet and IV fluid but patient decided to leave hospital against medical advice, she has been informed that her labs including hepatitis serology is pending and she needs to have follow-up labs at morning and need to be seen by care team to help in alcohol cessation however patient decided to leave, recommended her to follow-up with primary care physician,to arrange for outpatient follow-up of labs, counseling and gastroenterology consult, Time Spent with Patient Time attestation: Total time spent providing and/or coordinating discharge services: Discharge coordination time: Greater than 30 minutes Physical Exam Vital Signs: Vital Signs: Last Vital Signs Temp 98 F 10/06/20 15:15 Pulse 75 10/06/20 15:15 Resp 16 10/06/20 15:15 BP 134/84 10/06/20 15:15 Pulse Ox 98 10/06/20 15:15 Body Mass Index 26.4 See today's history and physical no change in physical exam DS: Data Data Completed and Pending Labs on day of discharge: Laboratory Results - last 24 hr 10/05/20 10/05/20 10/05/20 20:07 20:07 20:07 WBC RBC Hgb Hct MCV MCH MCHC RDW Plt Count MPV Immature Gran % (Auto) Neut % (Auto) Lymph % (Auto) Sanborn % (Auto) Eos % (Auto) Baso % (Auto) Lymph # (Auto) [place]born # (Auto) Eos # (Auto) Baso # (Auto) Abs Immat Gran (auto) Absolute Neuts (auto) Absolute Nucleated RBC Nucleated RBC % (auto) PT INR APTT Sodium Potassium Chloride Carbon Dioxide Anion Gap BUN Creatinine Estim Creat Clear Calc Estimated GFR Random Glucose Calcium Magnesium Iron TIBC % Saturation Unsat Iron Binding Total Bilirubin Direct Bilirubin GGT AST ALT Alkaline Phosphatase Lactate Dehydrogenase C-Reactive Protein Total Protein Albumin Urine Color RASHEED Urine Appearance CLEAR Urine pH 6.5 Ur Specific Dragoon 1.015 Urine Protein 1+ H Urine Glucose (UA) NEG Urine Ketones 15 Urine Blood 3+ H Urine Nitrite POS H Ur Leukocyte Esterase 1+ H Urine RBC 10-14 H Urine WBC 5-9 H Ur Squamous Epith Cells 2+ Urine Bacteria 1+ Urine Test NEGATIVE Urine Opiates Screen Not Detected Acetaminophen Ur Barbiturates Screen Not Detected Ur Phencyclidine Scrn Not Detected Ur Amphetamines Screen Not Detected U Benzodiazepines Scrn Not Detected Urine Cocaine Screen Not Detected U Marijuana (THC) Screen Not Detected COVID-19 (BLANCA) COVID-19 Clin Com Monoscreen 10/05/20 10/05/20 10/05/20 21:28 21:28 21:28 WBC 6.3 RBC 3.58 L Hgb 13.2 Hct 37.9 MCV 105.9 H MCH 36.9 H MCHC 34.8 RDW 14.4 Plt Count 165 MPV 12.1 Immature Gran % (Auto) 0.2 Neut % (Auto) 69.4 Lymph % (Auto) 20.8 Sanborn % (Auto) 7.6 Eos % (Auto) 1.4 Baso % (Auto) 0.6 Lymph # (Auto) 1.3 Sanborn # (Auto) 0.5 Eos # (Auto) 0.1 Baso # (Auto) 0.0 Abs Immat Gran (auto) 0.01 Absolute Neuts (auto) 4.4 Absolute Nucleated RBC 0.000 Nucleated RBC % (auto) 0.0 PT INR APTT Sodium 138 Potassium 3.5 Chloride 96 Carbon Dioxide 26 Anion Gap 20 BUN 10 Creatinine 0.63 Estim Creat Clear Calc 142.0 Estimated GFR > 60 Random Glucose 89 Calcium 9.2 Magnesium Iron TIBC % Saturation Unsat Iron Binding Total Bilirubin 5.1 H Direct Bilirubin GGT 836 H AST 322 H ALT 124 H Alkaline Phosphatase 173 H Lactate Dehydrogenase 385 H C-Reactive Protein Total Protein 7.1 Albumin 4.0 Urine Color Urine Appearance Urine pH Ur Specific Dragoon Urine Protein Urine Glucose (UA) Urine Ketones Urine Blood Urine Nitrite Ur Leukocyte Esterase Urine RBC Urine WBC Ur Squamous Epith Cells Urine Bacteria Urine Test Urine Opiates Screen Acetaminophen 1 Ur Barbiturates Screen Ur Phencyclidine Scrn Ur Amphetamines Screen U Benzodiazepines Scrn Urine Cocaine Screen U Marijuana (THC) Screen COVID-19 (BLANCA) COVID-19 Clin Com Monoscreen Negative 10/06/20 10/06/20 10/06/20 01:32 01:32 07:44 WBC RBC Hgb Hct MCV MCH MCHC RDW Plt Count MPV Immature Gran % (Auto) Neut % (Auto) Lymph % (Auto) Sanborn % (Auto) Eos % (Auto) Baso % (Auto) Lymph # (Auto) San[place] # (Auto) Eos # (Auto) Baso # (Auto) Abs Immat Gran (auto) Absolute Neuts (auto) Absolute Nucleated RBC Nucleated RBC % (auto) PT 13.7 H INR 1.2 H APTT 33.2 Sodium Potassium Chloride Carbon Dioxide Anion Gap BUN Creatinine Estim Creat Clear Calc Estimated GFR Random Glucose Calcium Magnesium 1.7 Iron 93 TIBC 181 L % Saturation 51 H Unsat Iron Binding 88 Total Bilirubin 4.2 H Direct Bilirubin 3.1 H GGT AST 257 H ALT 101 H Alkaline Phosphatase 150 H Lactate Dehydrogenase C-Reactive Protein 0.81 H Total Protein 6.1 L Albumin 3.5 Urine Color Urine Appearance Urine pH Ur Specific Dragoon Urine Protein Urine Glucose (UA) Urine Ketones Urine Blood Urine Nitrite Ur Leukocyte Esterase Urine RBC Urine WBC Ur Squamous Epith Cells Urine Bacteria Urine Test Urine Opiates Screen Acetaminophen Ur Barbiturates Screen Ur Phencyclidine Scrn Ur Amphetamines Screen U Benzodiazepines Scrn Urine Cocaine Screen U Marijuana (THC) Screen COVID-19 (BLANCA) Negative COVID-19 Clin Com See Note Monoscreen Preliminary micro results at discharge 10/05/20 20:22 Urine Culture - Preliminary Urine clean catch - Clean Catch Midstream Gram negative henok Discharge Plan Discharge Patient Disposition: Left Against Medical Advice Referrals: Physician,None [Primary Care Provider] - Discharge Medications: No Action No Known Home Meds RF: 0 Discharge Orders: Discharge Order (Routine); Ordered 10/06/20 Ordered By: Yandy Rehman Care Plan Goals: As above Health Concerns: Alcohol-related hepatitis complete abstinence from alcohol recommend, outpatient follow-up with PCP and Gastroenterology Plan of Treatment: follow up with pcp. Assessment: See discharge plan Discharge Date/Time: 10/06/20 18:27
[2020-10-07 00:02] LABS: Vitamin D 25-OH Total 3.9 ng/mL (>30)
[2020-10-07 09:22] LABS: Vitamin B12 403 pg/mL (200-900)
[2020-10-08 08:16] LABS: HBS Num1 0.59 mIU/mL (0-7.99); HBsAGNum1 0.56 S/CO (0.00-0.99); Hepatitis B Surface Antigen Negative (Negative); ~Hepatitis B Surface Antibody NONREACTIVE (Nonreactive)
[2020-10-08 08:25] LABS: Hepatitis B Core Antibody Nonreactive (Nonreactive); ~HepC Num1 0.08 S/CO (0.00-0.79); ~Hepatitis C Antibody Nonreactive (Nonreactive)
[2020-10-09 08:58] LABS: HBc Num1 0.09 S/CO (0.00-0.79); Hepatitis A Antibody IgM 0.13 Index (0-0.79); ~Hepatitis A Antibody IgM Nonreactive (Nonreactive)
== END 2020-10-06 18:27 | disposition left against medical advice (07) | DRG 434 ==
LOC: HO.ED 10-06 01:23 → HO.EDOVER 10-06 05:02 → HO.S3 10-06 05:26
PROVIDERS: Internal Medicine Gastroenterology; Admitting Provider Internal Medicine; Emergency Provider Student in an Organized Health Care Education/Training Program; Visit Provider Hospitalist
DX: K70.10 Alcoholic hepatitis without ascites (principal); R74.01 Elevation of levels of liver transaminase levels; K70.0 Alcoholic fatty liver; K29.20 Alcoholic gastritis without bleeding; Z20.822 Contact with and (suspected) exposure to COVID-19
CPT/HCPCS: 36415; 74177; 80053; 80076; 80143; 80307; 81001; 81003; 81025; 82306; 82607; 82746; 82977; 83540; 83615; 83735; 85025; 85610; 85730; 86140; 86308; 86704; 86706; 86709; 86803; 87086; 87088; 87186; 87340; 87635; 96365; 96375; 99284; 99285; J0696; J1650; Q9967